=== PATIENT | male | born 1985 | race Caucasian/White ===

== ENCOUNTER 2017-01-04 09:00 | Emergency (ER) | payer MEDICARE | END 2017-01-04 12:00 | disposition home or self-care (01) | LOC: ER 09:00 | DX: R09.1 Pleurisy (principal); R11.0 Nausea; E78.5 Hyperlipidemia, unspecified; I10 Essential (primary) hypertension; F43.10 Post-traumatic stress disorder, unspecified; F17.210 Nicotine dependence, cigarettes, uncomplicated; Z88.0 Allergy status to penicillin; Z79.899 Other long term (current) drug therapy | CPT/HCPCS: 36415; 96360; 96361; Q9967 ==